=== PATIENT | female | born 1975 | race Caucasian/White ===

== ENCOUNTER 2017-07-05 14:32 | Outpatient (CLI) | payer OTHER ==
--- NOTE | 2017-07-05 16:09 | MRI ---
MRI OF RIGHT WRIST 07/05/17 PROVIDED CLINICAL HISTORY: Right wrist pain. FINDINGS: The dorsal extensor and volar flexor tendons demonstrate an intact MR appearance. Regional marrow signal appears normal. Regional muscular signal appears normal. No regional joint eff usion is evident. Alignment appears anatomic. There is no significant fluid within the mid carpal or radiocarpal joint spaces. The lunotriquetral ligament, scapholunate ligament, and TFC complex appear grossly intact. There is focal enlargement and hyperintensity of the median nerve near the entrance to the carpal catherine alexander. The courses of the regional major neurovascular structures appear otherwise unremarkable. IMPRESSION: Nonspecific focal enlargement and T2 hyperintensity involving a portion of the median nerve, which co uld reflect neuritis. POS: TPC
== END 2017-07-05 14:33 | disposition home or self-care (01) ==
LOC: SCSMRI 14:32
PROVIDERS: ATTEND Orthopaedic Surgery Hand Surgery
DX: G90.511 Complex regional pain syndrome I of right upper limb (principal); R93.6 Abnormal findings on diagnostic imaging of limbs

== ENCOUNTER 2018-03-17 10:11 | Observation (INO) | payer OTHER ==
[2018-02-27 12:36] VITALS: BMI 34.3
[2018-03-17] MEDS ORDERED: CEFAZOLIN 2 GM/50 ML BAG ONE (10:44)
[2018-03-17 11:39] LABS: #Basophils 0.1 thou/uL (0.0-0.2); #Eosinphils 0.2 thou/uL (0.0-0.7); #Lymphocytes 2.2 thou/uL (1.20-3.40); #Monocytes 0.9 thou/uL (0.11-0.59); #Neutrophils 7.7 thou/uL (1.40-6.50); %Basophils 0.9 % (0.0-1.0); %Eosinophils 1.8 % (0.0-10.0); %Lymphocytes 19.3 % (21.0-51.0); %Monocytes 8.4 % (0.0-10.0); %Neutrophils 69.6 % (42.0-75.0); Hemoglobin 15.6 g/dL (12.0-16.0); Mean Corpuscular HGB CONC 33.2 g/dL (32.0-36.0); Mean Corpuscular Hemoglobin 31.2 pg (27.0-31.0); Mean Corpuscular Volume 94.1 fL (78.0-98.0); Mean Platelet Volume 8.6 fL (7.4-10.4); Platelet Count 526 thou/uL (130-400); RBC Distribution Width 11.3 % (11.5-14.5); White Blood Cell (WBC) Count 11.1 thou/uL (4.8-10.8)
[2018-03-17 11:42] LABS: Bilirubin Negative (Negative); Blood, Urine Negative (Negative); Clarity CLOUDY (Clear); Glucose, Urine (Dipstick) Negative (Negative); Leukocyte Negative (Negative); Nitrite Negative (Negative); Protein, Urine (Dipstick) Negative (Neg-Trace); Specific Gravity, Urine 1.019 (1.002-1.036); Urobilinogen 0.2 mg/dL (0.2-1.0)
[2018-03-17 11:47] LABS: Bacteria/HPF 1+ HPF (None Seen); Hyaline Casts/LPF 4-6 HYALINE CAST LPF (0-3 Hyaline); Pathc Cast-AUWi Flag 1.16 (0-2.49)
[2018-03-17 11:58] LABS: Anion Gap 14 mmol/L (10-20); BUN (Urea Nitrogen) 9 mg/dL (7.0-18.7); Calc. Creatinine Clearance 112 mL/min (70-130); Calcium 9.8 mg/dL (7.8-10.44); Carbon Dioxide 24 mmol/L (22-29); Chloride 106 mmol/L (98-107); Estimated GFR-MDRD 79; Glucose 104 mg/dL (70-105); Potassium 3.9 mmol/L (3.5-5.1); Sodium 140 mmol/L (136-145)
[2018-03-17] MEDS ORDERED: Midazolam HCl 2 mg/2 ml Vial ONE (12:33)
[2018-03-17] MEDS ORDERED: Fentanyl 100 MCG/2 ML VIAL ONE ×2 (12:34→13:06)
[2018-03-17] MEDS ORDERED: Betamet Acet/Betamet Na Ph 30 MG/5 ML VIAL ONE (12:58)
[2018-03-17] MEDS ORDERED: Bupivacaine PF 0.5% 30 ML VIAL ONE (12:58)
[2018-03-17] MEDS ORDERED: Bacitracin Zinc Ointment 30 gm TUBE ONE (12:58)
[2018-03-17] MEDS ORDERED: traMADol HCl 50 MG TAB PO PRN (13:35)
[2018-03-17] MEDS ORDERED: Fentanyl 100 MCG/2 ML VIAL IV PRN (13:35)
[2018-03-17] MEDS ORDERED: Promethazine HCl 25 MG/ML VIAL IM PRN (13:35)
[2018-03-17] MEDS ORDERED: Ropivacaine 0.2% 550 ML 550 ML NERVE BLCK SCH (13:35)
[2018-03-17] MEDS ORDERED: Zolpidem Tartrate 5 MG TAB PO PRN (13:35)
[2018-03-17] MEDS ORDERED: HYDROcodone/Acetaminophen 5/325 mg Tablet PO PRN ×2 (13:35)
[2018-03-17] MEDS ORDERED: Ondansetron PF 4 MG/2 ML Vial IVP PRN (13:35)
[2018-03-17] MEDS ORDERED: Ondansetron PF 4 MG/2 ML Vial IV PRN (15:24)
[2018-03-17] MEDS ORDERED: Milk Of Magnesia 30 ML UDCUP PO PRN (15:24)
[2018-03-17] MEDS ORDERED: Bisacodyl 10 MG SUPP PR PRN (15:24)
[2018-03-17] MEDS ORDERED: Morphine 4 MG/ML VIAL SLOW IVP PRN (15:24)
[2018-03-17] MEDS ORDERED: Communication Order-Pharmacy FS PRN (15:30)
[2018-03-17] MEDS ORDERED: TETANUS AND DIPHTHERIA TOX/PF 0.5 ML DISP.SYRIN IM SCH (16:30)
--- NOTE | 2018-03-17 18:55 | OP ---
DATE OF PROCEDURE: 03/17/2018 PREOPERATIVE DIAGNOSES: 1. Right lateral elbow epicondylitis. 2. Right first dorsal compartment de Quervain tenosynovitis with tenovaginitis. 3. Right trigger thumb. 4. Right carpal tunnel syndrome. 5. Right index finger tendon subluxation ulnarly, going from extension and flexion. FINDINGS: 1. Subluxation of ulna, centered on MCP and distally of the extensor mechanism with enough radial tissue intact for repair. 2. Moderate tenosynovitis with 3 tendon branch first dorsal compartment and three thumb trigger digit A1 kendrick very tight and constricted and finally the transverse carpal ligament tight with no early allograft formation. PROCEDURES PERFORMED: 1. Right lateral elbow lateral epicondyle injection with 2 mL of Celestone while under anesthesia. 2. Right wrist de Quervain release/tenovaginitis release. 3. Right wrist first dorsal compartment extensor tenosynovectomy. 4. Right trigger thumb release. 5. Right carpal tunnel release. 6. Right index finger metacarpophalangeal joint, extensor centralization using available tissue without distant graft. 7. Application of short-arm static splint. BLOOD LOSS: 50 mL. TOTAL TOURNIQUET TIME: 47 minutes. ANESTHESIA: General LMA technique augmented by preoperative block as along with splenic infarct. She will be admitted for these two problems. DESCRIPTION OF PROCEDURE: After successful anesthesia listed above, the limb was prepped and draped. Time-out was done appropriately, made sure it is right extremity. All previous surgical sites had been marked and agreed upon by the patient, and the sites that were prepped, draped, and listed in the consent. We first approached the elbow and under direct palpation, and the area of greatest tenderness previously marked, we injected with 2 mL of Celestone with a 22-gauge long needle. Then, we exsanguinated the limb, inflated tourniquet to 250 mmHg pressure and then approached the first dorsal compartment in zigzag fashion. A 2-cm incision was made, carried through the skin and subcutaneous tissue medially. We saw the 2 branches of the superficial radial nerve at the ulnar aspect, protected them for the site of the field. There was a tight tenovaginitis over the first extensor hurst, so we released the hurst and noted there were 3 sleeves of tendon, 2 from the abductor, and it was a separate compartment for the extensor pollicis brevis, which was released as well. We then placed 1 mL of Celestone here and closed this with interrupted 4-0 nylon. We then approached the thumb trigger digit. We lifted up the thumb, identified the mass, made a slightly radial angulated, straight down the midline incision, carried this through skin and subcutaneous tissue, identified the 2 digital nerves, protected them and then released the tendon A1 kendrick in the midline with K[place] blade. The incision was then closed with interrupted 4-0 nylon simple stitch. We were able to identify the carpal tunnel and allowed 2.5 cm incision in line with the center of the ring finger and just slightly ulnar to the palmaris insertion. It was as far distal as Mancia's cardinal line, as far proximal as one with 7 mm from the palmar flexion crease. We then developed this incision with a knife through skin and subcutaneous tissue, identified the transcarpal ligament and insertion of the palmaris. We then entered the transcarpal ligament at the ulnar aspect of palmaris and first released from the center of the transcarpal ligament distally, protecting all the neurovascular structures and then once we visualized the nerve, we then released the transcarpal ligament under direct visualization using combination of Kauai blade and tenotomy scissors from the midpoint distally. 1 mL of Celestone was placed in the middle with nerve most constricted in drip fashion. We closed this with interrupted mattress pattern 4-0 nylon. Attention now turned to the dorsal hand. We could identify the subluxation with the skin, still closed. We made a zigzag Starr incision beginning approximately 2.5 cm distal to 2 cm proximal to the head of the metacarpal index finger. We carried the incision through skin and subcutaneous tissue, and saw that the lateral bands were very tight and these were released. After this, there was only partial correction of visible subluxation seen with open incision and then we prepared to tighten the mechanism with available tissue as it was stretched, but still present, so we removed the over stressed areas, then in a [id number] fashion using 6 individual sutures, 3-0 on either side, we then did a [id number] repair/reconstruction of the available tissue along the radial side after trimming some of the very thin part and removing it. The patient then had flexion to 95 degrees with no evidence of loss of function. We now released the tourniquet, obtained hemostasis. The MCP joint index remained stable, slightly more extended in position of rest and then we closed this incision as well as all others that were remained with 4-0 nylon. Mattress pattern was used in the carpal tunnel as well as simple pattern on the dorsal hurst incision of the index finger ipsilateral right side. The patient had Marcaine injected with a block, which was very effective, once hemostasis obtained, placed in a bulky dressing, which could be Bacitracin over Adaptic into the wound, and then 4x4s, Kerlix, and then placed the index along in a splint position. Job ID: [id number]
[2018-03-17] MEDS: pyridOXINE 50 MG (B6) TAB PO SCH (20:25)
[2018-03-17] MEDS: Ascorbic Acid 500 mg Chewable Tablet PO SCH (20:26)
[2018-03-17] MEDS: Aspirin 81 mg Enteric Coated Tablet PO SCH (20:26)
[2018-03-17] MEDS ORDERED: Lidocaine 1% PF 5 ML VIAL ONE (20:45)
[2018-03-17] MEDS ORDERED: Dexamethasone 20 MG/5 ML VIAL ONE (20:45)
[2018-03-17] MEDS ORDERED: Ondansetron PF 4 MG/2 ML Vial ONE (20:45)
[2018-03-17] MEDS ORDERED: PROPOFOL 200 MG/20 ML VIAL ONE (20:45)
[2018-03-17] MEDS: traMADol HCl 50 MG TAB PO PRN (22:09)
[2018-03-18] MEDS ORDERED: Promethazine HCl 25 MG/ML VIAL IM PRN (04:39)
[2018-03-18] MEDS: traMADol HCl 50 MG TAB PO PRN ×2 (06:28→12:00)
[2018-03-18] MEDS: Aspirin 81 mg Enteric Coated Tablet PO SCH (08:54)
[2018-03-18] MEDS: Ascorbic Acid 500 mg Chewable Tablet PO SCH (08:54)
[2018-03-18] MEDS: pyridOXINE 50 MG (B6) TAB PO SCH (08:54)
[2018-03-18] MEDS ORDERED: Pregabalin 75 MG CAP PO SCH (09:00)
[2018-03-18] MEDS ORDERED: DULoxetine 60 MG CAP PO SCH (09:00)
[2018-03-18 09:23] LABS: #Lymphocytes 1.3 thou/uL (1.20-3.40); #Monocytes 0.4 thou/uL (0.11-0.59); #Neutrophils 16.7 thou/uL (1.40-6.50); %Basophils 0.2 % (0.0-1.0); %Eosinophils 0.2 % (0.0-10.0); %Lymphocytes 7.2 % (21.0-51.0); %Monocytes 2.1 % (0.0-10.0); %Neutrophils 90.3 % (42.0-75.0); Mean Corpuscular HGB CONC 33.4 g/dL (32.0-36.0); Mean Corpuscular Hemoglobin 31.5 pg (27.0-31.0); Mean Corpuscular Volume 94.3 fL (78.0-98.0); Mean Platelet Volume 8.3 fL (7.4-10.4); Platelet Count 520 thou/uL (130-400); RBC Distribution Width 11.1 % (11.5-14.5); Red Blood Cell (RBC) Count 4.77 mill/uL (4.20-5.40); White Blood Cell (WBC) Count 18.5 thou/uL (4.8-10.8)
[2018-03-18 09:41] LABS: ALT (SGPT) 145 U/L (8-55); AST (SGOT) 71 U/L (5-34); Alkaline Phosphatase 117 U/L (40-150); Anion Gap 15 mmol/L (10-20); BUN (Urea Nitrogen) 13 mg/dL (7.0-18.7); Bilirubin, Total 0.3 mg/dL (0.2-1.2); Calc. Creatinine Clearance 103 mL/min (70-130); Calcium 9.6 mg/dL (7.8-10.44); Carbon Dioxide 21 mmol/L (22-29); Chloride 106 mmol/L (98-107); Estimated GFR-MDRD 72; Glucose 248 mg/dL (70-105); Sodium 138 mmol/L (136-145)
--- NOTE | 2018-03-18 09:55 | CT ---
PRELIMINARY REPORT/[facility]/EMERGENTY AFTER-HOURS PROCEDURE CT Abdomen and Pelvis With Contrast EXAM DATE/TIME: 03/18/2018 4:55 AM CLINICAL HISTORY: 42 years old, female; Pain; Abdominal pain; Flank; Left; Prior surgery; Patient HX: PT C/O left flank pain; Denies nausea or vomiting. Sugical HX of ronald TECHNIQUE: Axial computed tomography images of the abdomen and pelvis with intravenous contrast. Coronal reformatted images were created and reviewed. COMPARISON: No relevant prior studies available. FINDINGS: Lower thorax: There is consolidation of the RIGHT lung base with air bronchograms compatible with ate lectasis or pneumonia in the appropriate clinical setting. ABDOMEN: Liver: There are no focal liver lesions identified. Gallbladder and bile ducts: There has been a cholecystectomy. Pancreas: The pancreas appears normal. No ductal dilatation. Spleen: There is absent enhancement of large portions of the spleen possibly representing infarction versus differential early enhancement. Adrenals: The adrenal glands are normal. Kidneys and ureters: The kidneys appear normal. No hydronephrosis. Stomach and bowel: The stomach is normal. The duodenum is unremarkable. The colon is normal. There is no evidence of intestinal perforation or obstruction. Appendix: A normal appendix is identified. PELVIS: Bladder: The bladder is normal. Reproductive: The uterus is not visualized, and may be atrophic or surgically absent. ABDOMEN and PELVIS: Intraperitoneal space: Normal. No free air. No significant fluid collection. Bones/joints: No acute fracture. No dislocation. Soft tissues: Unremarkable. Vasculature: Normal. No abdominal aortic aneurysm. Lymph nodes: Normal. No enlarged lymph nodes. IMPRESSION: There is consolidation of the RIGHT lung base with air bronchograms compatible with atelectasis or pn eumonia in the appropriate clinical setting. There is absent enhancement of large portions of the spl een possibly representing infarction versus differential early enhancement. Thank you for allowing us to participate in the care of your patient. Dictated and Authenticated by: Margarito Hylton MD 03/18/2018 6:01 AM Central Time ([place] & Ja) FINAL REPORT EMERGENT AFTER HOURS CT ABDOMEN AND PELVIS WITH IV CONTRAST: DATE: 03/18/2018. HISTORY: Left flank pain. Surgical history of cholecystectomy. IMPRESSION: 1. Parenchymal opacity at the right lung base which may be related to either atelectasis or pneumoni a. 2. Areas of absent enhancement involving the majority of the spleen, and findings are worrisome for infarction of the spleen. Serpiginous low-density area seen within the region of the splenic hilum wh ich may represent occluded vessels. This may potentially represent occlusion of splenic artery branc hes in the region of the hilum of the spleen. The splenic artery is small in caliber. 3. Postcholecystectomy changes. 4. No CT evidence of appendicitis. 5. Subcentimeter too small to characterize hypodense lesion right kidney. 6. Findings are in agreement with the preliminary report by [facility]. POS: SHANNON
[2018-03-18 12:03] VITALS: BP 119/75; TEMP 98.1
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
[2018-03-18] MEDS ORDERED: ISOVUE-370 76%-LOCM 1 ML ONE (15:41)
== END 2018-03-18 15:23 | disposition home or self-care (01) ==
LOC: SDC 10:11 → SURG A 15:45
PROVIDERS: ADMIT Orthopaedic Surgery Hand Surgery; ATTEND Orthopaedic Surgery Hand Surgery
PROC: 0LN50ZZ Release Right Lower Arm and Wrist Tendon, Open Approach (ICD-10-PCS; principal; 2018-03-17)
PROC: 0LN70ZZ Release Right Hand Tendon, Open Approach (ICD-10-PCS; 2018-03-17)
PROC: 01N50ZZ Release Median Nerve, Open Approach (ICD-10-PCS; 2018-03-17)
DX: M65.4 Radial styloid tenosynovitis [de Quervain] (principal); M77.11 Lateral epicondylitis, right elbow; M65.311 Trigger thumb, right thumb; G56.01 Carpal tunnel syndrome, right upper limb; S63.091A Other subluxation of right wrist and hand, initial encounter; D73.5 Infarction of spleen; F17.210 Nicotine dependence, cigarettes, uncomplicated; Z91.040 Latex allergy status; Z90.49 Acquired absence of other specified parts of digestive tract; Z90.721 Acquired absence of ovaries, unilateral; Z90.710 Acquired absence of both cervix and uterus; Z87.442 Personal history of urinary calculi; Z98.890 Other specified postprocedural states; Z79.899 Other long term (current) drug therapy
CPT/HCPCS: 36415; 74177; 80048; 80053; 81001; 85025; 85652; 96372; A4306; G0378; J0702; J1100; J2001; J2175; J2250; J2405; J2550; J2704; J2795; J3010; S0020

== ENCOUNTER 2018-11-07 09:31 | Outpatient (CLI) | payer OTHER ==
[2018-11-07 11:57] LABS: Band 2 % (5-11); Eosinophils 5 % (0-10); Hemoglobin 14.9 g/dL (12.0-16.0); Lymphocytes 31 % (21-51); MDiff Complete? YES; Mean Corpuscular HGB CONC 32.1 g/dL (32.0-36.0); Mean Corpuscular Hemoglobin 28.5 pg (27.0-31.0); Mean Corpuscular Volume 88.8 fL (78.0-98.0); Mean Platelet Volume 9.4 fL (7.4-10.4); Monocytes 8 % (0-10); Neutrophil 53 % (42-75); Platelet Count 389 thou/uL (130-400); RBC Distribution Width 12.5 % (11.5-14.5); RBC Morphology Normal; Reactive Lymphocytes 1 % (0-10); Red Blood Cell (RBC) Count 5.23 mill/uL (4.20-5.40); White Blood Cell (WBC) Count 16.3 thou/uL (4.8-10.8)
== END 2018-11-07 09:32 | disposition home or self-care (01) ==
LOC: LABBT 09:31
PROVIDERS: ATTEND Orthopaedic Surgery Hand Surgery
DX: Z01.812 Encounter for preprocedural laboratory examination (principal); M20.091 Other deformity of right finger(s); M62.40 Contracture of muscle, unspecified site
CPT/HCPCS: 85025

== ENCOUNTER 2018-11-11 07:21 | Day surgery (SDC) | payer OTHER ==
[2018-11-07 09:47] VITALS: BMI 30.7
[2018-11-11] MEDS ORDERED: Fentanyl 100 MCG/2 ML VIAL ONE ×2 (07:54→09:17)
[2018-11-11] MEDS ORDERED: Midazolam HCl 2 mg/2 ml Vial ONE (07:54)
[2018-11-11] MEDS ORDERED: Lidocaine 1% (PF) 30 ML VIAL ONE (08:26)
[2018-11-11] MEDS ORDERED: Ropivacaine 0.2% 550 ML 550 ML NERVE BLCK SCH (08:53)
[2018-11-11] MEDS ORDERED: Promethazine HCl 25 MG/ML VIAL IM PRN (08:53)
[2018-11-11] MEDS ORDERED: Zolpidem Tartrate 5 MG TAB PO PRN (08:53)
[2018-11-11] MEDS ORDERED: HYDROcodone/Acetaminophen 10/325 mg Tablet PO PRN ×2 (08:53)
[2018-11-11] MEDS ORDERED: Ondansetron PF 4 MG/2 ML Vial IVP PRN (08:53)
[2018-11-11] MEDS ORDERED: traMADol HCl 50 MG TAB PO PRN ×2 (08:53)
[2018-11-11] MEDS ORDERED: Sodium Chloride 0.9% 10 ML ONE (09:14)
[2018-11-11] MEDS ORDERED: Bacitracin Zinc Ointment 30 gm TUBE ONE (09:14)
[2018-11-11] MEDS ORDERED: Bupivacaine PF 0.5% 30 ML VIAL ONE (09:14)
[2018-11-11] MEDS ORDERED: Betamet Acet/Betamet Na Ph 30 MG/5 ML VIAL ONE (10:07)
[2018-11-11] MEDS ORDERED: Meperidine HCl/PF 25 MG/ML VIAL ONE (10:57)
[2018-11-11] MEDS ORDERED: Ropivacaine 0.2% HCl/PF (40 MG/20 ML VIAL) ONE (11:10)
[2018-11-11] MEDS ORDERED: Ropivacaine 0.5% HCl/PF (150 MG/30 ML VIAL) ONE (11:10)
[2018-11-11] MEDS ORDERED: Ketorolac Tromethamine 30 MG/ML VIAL IVP SCH (12:00)
--- NOTE | 2018-11-11 13:34 | OP ---
DATE OF PROCEDURE: 11/11/2018 PREOPERATIVE DIAGNOSIS: Right index finger joint tightness with intrinsic tightness. POSTOPERATIVE DIAGNOSES: Right index finger joint tightness with intrinsic tightness with finding of extensive adhesions to skin, repair of extensive adhesions on the radial side, previous radial side extensor mechanism, extensor retinaculum repair, adhesions to bone, capsule, and skin. PROCEDURE PERFORMED: 1. Arthrotomy with dorsal capsulotomy of the metacarpophalangeal joint, right index finger. 2. Extensor tenolysis, from skin and from bone and joint capsule. 3. Removal of deep Prolene sutures, which were at the center of the most adhesive scar to skin and to bone seen. 4. Intrinsic release of radial and ulnar. 5. Application of the Celestone intra-articular and between skin and tendon, and tendon and bone. INDICATION: The patient with a very strong history of RSD, underwent today to help supraclavicular block with an indwelling pain pump and because of failure of the previous extensor hurst centralization to allow her to flex, with testing in the clinic of both joint and intrinsic tightness, she returned to the operating room for relief of these contractures. We did not have to perform any other surgery from her previous associated problems from at work injury for more over a year ago. TOURNIQUET TIME: 20 minutes. ESTIMATED BLOOD LOSS: 5 mL. INJECTABLE: Besides block, a total of 15 mL of 0.5% Marcaine, no epinephrine, and Celestone. There was no evidence of fracture or infection. DESCRIPTION OF PROCEDURE: After successful general endotracheal anesthesia, the limb was prepped and draped. Time-out was done appropriately. Besides the block, she had 10 mL of 0.5% Marcaine given along the incision. We used a previous zigzag line that was our prior incision, carried through skin and subcutaneous tissue, immediately begin to see adhesions. We the skin from the tendon, especially on the radial side where the retinacular repair took place, was very adherent. We then noticed that even with her asleep, I could not flex her joint easily to 100 degrees and I could do the other ones only to about 75, so we lifted up the dorsal hurst, especially in the ulnar side and then released the joint capsule without further retinacular release, and on the radial side, we had to do the same, at this time, making a small window also to release the joint. We found that the extensor mechanism on the retinacular repair at radial side was very tight adherent to the skin, which we and removed the scar and the bone as well. There was no evidence of infection or subluxation, and after the release was done at the joint level, there was no extensor tendon subluxation. We then did a triangular wedge-shaped 15 mm long intrinsic release on the radial and ulnar aspects distal to the retinaculum. This was done, then the joint was flexed to 90 degrees at the PIP joint without any spring back and without any spring back at the MP joint. The tenolysis was not completed as was the release. We had no spring back when I passive flexed her to 110 degrees PIP joint, and with the tenodesis effect, we had appropriate orientation of all the joints. We obtained hemostasis, closed the wound with interrupted 4-0 nylon in a simple pattern, bulky dressing applied, and the patient left the operating room without evidence of anesthetic or operative complication. Job ID: [id number]
[2018-11-11] MEDS ORDERED: Lidocaine 1% PF 5 ML VIAL ONE (17:18)
[2018-11-11] MEDS ORDERED: Ondansetron PF 4 MG/2 ML Vial ONE (17:18)
[2018-11-11] MEDS ORDERED: Ketorolac Tromethamine 30 MG/ML VIAL ONE (17:18)
[2018-11-11] MEDS ORDERED: Dexamethasone 20 MG/5 ML VIAL ONE (17:18)
[2018-11-11] MEDS ORDERED: PROPOFOL 200 MG/20 ML VIAL ONE (17:18)
== END 2018-11-11 12:45 | disposition home or self-care (01) ==
LOC: SDC 07:21
PROVIDERS: ATTEND Orthopaedic Surgery Hand Surgery
PROC: 0LN70ZZ Release Right Hand Tendon, Open Approach (ICD-10-PCS; principal; 2018-11-11)
PROC: 0RNU0ZZ Release Right Metacarpophalangeal Joint, Open Approach (ICD-10-PCS; principal; 2018-11-11)
DX: M24.541 Contracture, right hand (principal); G90.513 Complex regional pain syndrome I of upper limb, bilateral; F17.210 Nicotine dependence, cigarettes, uncomplicated; F43.10 Post-traumatic stress disorder, unspecified; Z79.899 Other long term (current) drug therapy; Z88.5 Allergy status to narcotic agent; Z91.040 Latex allergy status
CPT/HCPCS: A4306; J0690; J0702; J1100; J1885; J2001; J2175; J2250; J2405; J2704; J2795; J3010; J3490; S0020

== ENCOUNTER 2019-12-10 12:31 | Outpatient (CLI) | payer OTHER ==
--- NOTE | 2019-12-10 14:52 | MRI ---
MRI OF THE RIGHT ELBOW WITHOUT CONTRAST: INDICATION: History of right lateral epicondylitis and elbow pain for 2 years without a recent history of trauma. COMPARISON: None. FINDINGS: Motion artifact slightly limits image detail. The UCL, radial collateral ligament, and lateral ulnar collateral ligament are intact. The common fl exor, extensor origin are intact. There is some mild tendinosis involving the origin of the right co mmon extensor tendon. A small amount of subcutaneous edema overlies the lateral aspect of the right elbow. Visualized ulnar nerve is normal-appearing. Biceps, brachialis, and triceps insertions appea r within normal limits. No osteochondral defect or joint effusion is evident. IMPRESSION: Some mild tendinosis involving the common extensor origin with some overlying subcutaneous edema may reflect sequelae of very mild lateral epicondylitis. POS: BH
== END 2019-12-10 12:32 | disposition home or self-care (01) ==
LOC: BICMRI 12:31
PROVIDERS: ATTEND Orthopaedic Surgery Hand Surgery
DX: M77.11 Lateral epicondylitis, right elbow (principal); M77.9 Enthesopathy, unspecified